=== PATIENT | male | born 1950 | race Caucasian/White ===

== ENCOUNTER 2019-01-22 06:07 | Day surgery (SDC) | payer BC ==
--- NOTE | 2019-01-13 14:33 | HP ---
DATE OF SURGERY: 01/22/2019 REASON FOR ADMISSION: Bilateral inguinal hernias. BRIEF HISTORY: This is a 68-year-old gentleman who has a 4-6 month history of having discomfort in the left groin region. The patient states he has a mass in the left groin as well. The discomfort only started when the mass appeared. He underwent a CT scan of the abdomen and pelvis in December 2018 done at [facility]. The scan demonstrated a small, tiny umbilical hernia and bilateral fat-containing inguinal hernias. The patient states he has had no nausea, vomiting or change in bowel habits. PAST MEDICAL HISTORY: Denies coronary disease, hypertension or diabetes. PAST SURGICAL HISTORY: None. ALLERGIES: None. MEDICATIONS: None. SOCIAL HISTORY: The patient smokes one pack of cigarettes per day. He does not smoke. No history of drug use. PHYSICAL EXAMINATION: The patient was examined in the erect and supine positions. The abdomen is soft, nontender, nondistended. Clinically, he does not have an umbilical hernia. He is still . He has bilateral inguinal hernias noted. The left is much greater than that on the right. The left is not fully reducible in the supine position. Scrotum and testicles are within normal limits. IMPRESSION/PLAN: Chronically incarcerated left inguinal hernia and right inguinal hernia. This is a 68-year-old gentleman with a CT diagnosis of bilateral fat-containing inguinal hernias. What prompted the CT was his clinical presentation of having pain and a mass in the left groin. The patient and I had a long conversation regarding the various surgical approaches for repairing these hernias. We discussed the various types of mesh as well as a primary repair. The patient will be best served with a laparoscopic left and right inguinal hernia repair with mesh. Due to the generosity of the hernia on the left, he may develop a post-operative seroma which may or may not resolve and this was discussed with the patient. He understands and still wants to proceed. The patient will be scheduled for laparoscopic inguinal hernia repair with mesh. The indications, alternatives and complications of the procedure were discussed and questions were answered. We will plan to obtain written consent on the day of surgery. Laura ROMAN [id number] cc: Annabel Hua MD MTDD
[2019-01-13 17:53] VITALS: BMI 23.6
[2019-01-22] MEDS ORDERED: TAMSULOSIN HCL 0.4 MG CAP ONE ×2 (06:33→14:47)
[2019-01-22] MEDS ORDERED: PROPOFOL 20 ML ONE (07:51)
[2019-01-22] MEDS ORDERED: ROCURONIUM BROMIDE 50 MG/5 ML VIAL ONE ×2 (07:51→08:39)
[2019-01-22] MEDS ORDERED: SUCCINYLCHOLINE CHLORIDE 200 MG/10 ML VIAL ONE (07:51)
[2019-01-22] MEDS ORDERED: LIDOCAINE HCL/PF 2% SDV 5ML VIAL ONE (07:51)
[2019-01-22] MEDS ORDERED: MIDAZOLAM HCL 2 MG/2 ML SINGLE DOSE VIAL ONE (07:51)
[2019-01-22] MEDS ORDERED: ALBUTEROL SO4 8 GM HFA INHALER IH ONE (08:05)
[2019-01-22] MEDS ORDERED: ceFAZolin SODIUM 1 GM VIAL ONE (08:19)
[2019-01-22] MEDS ORDERED: ONDANSETRON 4 MG/2 ML VIAL ONE ×2 (08:23→08:54)
[2019-01-22] MEDS ORDERED: DEXAMETHASONE SOD PHOSPHATE 4 MG/1 ML VIAL ONE (08:23)
[2019-01-22] MEDS ORDERED: PHENYLEPHRINE HCL 10 MG/1 ML SINGLE DOSE VIAL ONE (08:24)
[2019-01-22] MEDS ORDERED: GLYCOPYRROLATE 0.2 MG/1 ML VIAL ONE ×2 (08:54→09:11)
[2019-01-22] MEDS ORDERED: NEOSTIGMINE METHYLSULFATE 0.5 MG/ML - 10 ML MDV ONE (08:54)
[2019-01-22] MEDS ORDERED: ONDANSETRON 4 MG/2 ML VIAL IVPUSH PRN (09:32)
[2019-01-22] MEDS ORDERED: oxyCODONE HCL 5 MG TABLET PO PRN (09:32)
[2019-01-22] MEDS ORDERED: LACTATED RINGERS SOLUTION 1,000 ML IV SCH (09:45)
[2019-01-22] MEDS ORDERED: ALBUTEROL SO4 2.5/IPRATROPIUM 0.5 INH SOL 3 ML VIAL.NEB. NEB ONE (09:46)
[2019-01-22] MEDS ORDERED: RACEPINEPHRINE IH SOL 2.25% 11.25 MG/0.5 ML VIAL NEB ONE (09:46)
[2019-01-22] MEDS ORDERED: ACETAMINOPHEN INJECTION 100 ML IVPB ONE (10:35)
[2019-01-22] MEDS ORDERED: ACETAMINOPHEN 1000 MG/100 ML VIAL (NON FORMULARY) IVPB ONE ×2 (10:35→11:23)
--- NOTE | 2019-01-22 11:10 | OP ---
DATE OF OPERATION: 01/22/2019 PREOPERATIVE DIAGNOSIS: Bilateral incarcerated fat-containing inguinal hernias. POSTOPERATIVE DIAGNOSIS: Bilateral incarcerated fat-containing inguinal hernias. PROCEDURE: Bilateral laparoscopic repair of incarcerated inguinal hernias with mesh. SURGEON: Calos Estrada MD PHP PROGRAMMER: Andrea Scott DO ANESTHESIA: Mauricio Go MD (general) ESTIMATED BLOOD LOSS: Minimal. SPECIMEN: None. INDICATION FOR PROCEDURE: This is a 68-year-old gentleman with a 4 to 6-month history of having discomfort in the left groin region. He also notices a mass in the left groin. He underwent a CAT scan that showed bilateral fat-containing incarcerated inguinal hernias. He is now here for operative repair. DESCRIPTION OF PROCEDURE: Patient identified and appropriately positioned on the operating room table. After placement of general anesthesia, the abdomen was prepped and draped in the usual sterile fashion with ChloraPrep. An infraumbilical incision was made, deepened through the subcutaneous tissues. The fascia of the rectus muscle on the right identified, divided sharply, the muscle split. Under direct vision a dissector balloon followed by a structural balloon placed. Also under direct vision a suprapubic 11-mm port placed. The following structures on the right side identified: Pubic tubercle, Mina's ligament, inferior epigastric vessels, spermatic cord and lateral abdominal wall. During this dissection patient had an incarcerated direct inguinal hernia containing fat. This was reduced back into the preperitoneal space. He also had an incarcerated indirect inguinal hernia containing fat that was reduced back into the preperitoneal space with a moderate size cord lipoma. The indirect sac reduced as well. A 5 x 6 piece of Versatex mesh was keyholed, placed through the suprapubic port site. The mesh was wrapped around the cord structures laterally to reconstruct the internal ring. Laterally the mesh was anchored to the anterior abdominal wall, lateral abdominal wall. Medially the mesh was anchored to the anterior abdominal wall, pubic tubercle and Mina's ligament. Upon completion of the right side, similar structures on the left side identified. On the left side he had similar findings except he had attenuation of direct inguinal floor bed and markedly large left indirect inguinal hernia containing fat and a large cord lipoma. Both were reduced back into the preperitoneal space with blunt dissection. The sac was off the cord structures with blunt dissection. Another 5 x 6 piece of Versatex mesh was keyholed, placed through the suprapubic port site. The mesh was wrapped around the cord structures laterally to reconstruct the internal ring. Laterally the mesh was anchored to the anterior abdominal and lateral abdominal wall. Medially the mesh well overlapped in the midline, anchored to the anterior abdominal wall, pubic tubercle and Mina's ligament. The mesh we used was Versatex. The anchoring system was ReliaTack. All anterior abdominal wall and lateral abdominal wall anchors placed under direct counter palpation. The ports were removed. Port sites were hemostatic. The fascia at both port sites reapproximated with interrupted 0 Vicryl suture. All skin closed with 4-0 subcuticular Biosyn followed by Dermabond. At the conclusion of this case, sponge counts were correct. ATTESTATION: Brief op note handwritten on the preprinted form. [facility] queried prior to giving any narcotics. Laura ROMAN [id number] cc: Arpit Hua MD
[2019-01-22 15:01] VITALS: TEMP 97.7
[2019-01-22 17:42] VITALS: BP 112/70; PULSE 63
== END 2019-01-22 17:42 | disposition home or self-care (01) ==
LOC: FASU 06:07
PROVIDERS: ATTEND Surgery
PROC: 0YUA4JZ Supplement Bilateral Inguinal Region with Synthetic Substitute, Percutaneous Endoscopic Approach (ICD-10-PCS; principal; 2019-01-22 08:29)
DX: K40.00 Bilateral inguinal hernia, with obstruction, without gangrene, not specified as recurrent (principal)
CPT/HCPCS: 94760; J0131

== ENCOUNTER 2020-04-14 07:05 | Day surgery (SDC) | payer BC ==
[2020-04-12 11:36] VITALS: BMI 23.3
--- OUTSIDE RECORDS SUMMARY | 2020-04-14 07:08 | XMS ---
:1950 Author Organization [facility] Support Name Relationship Address Phone RE, RETIRED Unavailable Unavailable Unavailable RE Unavailable Unavailable Unavailable MAUREEN RAMIREZ [address] [facility] [place] [address] Re-disclosure Warning The records that you are about to access may contain information from federally- assisted alcohol or drug abuse programs. If such information is present, then the following federally mandated warning applies: This information has been disclosed to you from records protected by federal confidentiality rules (42 CFR part 2). The federal rules prohibit you from making any further disclosure of this information unless further disclosure is expressly permitted by the written consent of the person to whom it pertains or as otherwise permitted by 42 CFR part 2. A general authorization for the release of medical or other information is NOT sufficient for this purpose. The Federal rules restrict any use of the information to criminally investigate or prosecute any alcohol or drug abuse patient.The records that you are about to access may contain highly sensitive health information, the redisclosure of which is protected by Article 27-F of the [facility] Public Health law. If you continue you may haveaccess to information: Regarding HIV / AIDS; Provided by facilities licensed or operated by the [facility] Office of Mental Health; or Provided by the [facility] Office for People With Developmental Disabilities. If such information is present, then the following [facility] mandated warning applies: This information has been disclosed to you from confidential records which are protected by state law. State law prohibits you from making any further disclosure of this information without the specific written consent of the person to whom it pertains, or as otherwise permitted by law. Any unauthorized further disclosure in violation of state law may result in a fine or care home sentence or both. A general authorization for the release of medical or other information is NOT sufficient authorization for further disclosure. Insurance Providers Payer name Policy type Policy ID Covered Covered alliance party's Policy P hansel / Coverage alliance party ID relationship to [place] Inf ormation type [place] BLUE CROSS [id number] SP [id number] SENIOR PLAN 2 BLUE CROSS [id number] SP [id number] SENIOR PLAN 2 Results ID Date Data Source [id number] 04/10/2020 09:10:00 AM EDT [facility] Name Value Range Interpretation Description Data Sup porting Code Source(s) Document(s ) SARS [facility] coronavirus 2 RNA This lab was ordered by [facility] and reported by [facility]. ID Date Data Source [id number] 03/30/2020 07:45:00 PM EDT [facility] Name Value Range Interpretation Code Description Data Catalina rce(s) Supporting Document(s ) [facility] SARS-CoV-2 TMA PCR This lab was ordered by [facility] CALL and reported by [facility]. Procedure
[2020-04-14] MEDS ORDERED: PROPOFOL 20 ML ONE ×3 (07:55)
[2020-04-14] MEDS ORDERED: LIDOCAINE HCL/PF 2% SDV 5ML VIAL ONE (07:55)
[2020-04-14 09:39] VITALS: TEMP 97.8
[2020-04-14 09:41] VITALS: BP 101/55; PULSE 65
--- NOTE | 2020-04-15 15:39 | PATH ---
Surgical Pathology Report Patient Name: FREDI RAMIREZ [facility]. Rec. #: [id number] /Age/Gender: 1950 (Age: 69) / M Account: [id number] Location: [facility] Taken: 04/14/2020 Received: 04/14/2020 Reported: 04/15/2020 Physicians: Bucky Brandt M.D. Specimen(s) Received A: POLYP HEPATIC FLEXURE B: POLYP DISTAL RIGHT COLON C: POLYPECTOMY PROXIMAL TRANSVERSE COLON D: POLYPECTOMY SIGMOID COLON Clinical History History of polyps Postoperative diagnosis: Colon polyps Final Diagnosis A. HEPATIC FLEXURE, POLYP, BIOPSY: SCANT (< 1 MM) FRAGMENT OF FIBROADIPOSE TISSUE. NO COLONIC MUCOSA IS IDENTIFIED. B. DISTAL RIGHT COLON, POLYP, BIOPSY: HYPERPLASTIC POLYP. C. PROXIMAL TRANSVERSE, POLYP, POLYPECTOMY: TUBULAR ADENOMA. D. SIGMOID COLON, POLYP, POLYPECTOMY: SESSILE SERRATED POLYP. Comment: Case discussed with Dr. Brandt on 04/15/20. Electronically Signed Soniya Hancock M.D. Gross Description A. Received in formalin, labeled "biopsy polyp hepatic flexure" is a brown, irregular portion of soft tissue measuring less than 0.1 cm. in greatest dimension. The specimen is submitted in toto in one cassette. B. Received in formalin, labeled "polyp distal right colon biopsy" is a maldonado, irregular portion of soft tissue measuring 0.2 cm. in greatest dimension. The specimen is submitted in toto in one cassette. C. Received in formalin, labeled "polypectomy proximal transverse" is a maldonado, polypoid portion of soft tissue measuring 0.7 cm. in greatest dimension. The specimen is submitted in toto in one cassette. D. Received in formalin, labeled "polypectomy sigmoid colon" is a maldonado, irregular portion of soft tissue measuring 0.3 cm. in greatest dimension. The specimen is submitted in toto in one cassette. 04/14/2020 saudi/04/14/2020
== END 2020-04-14 09:43 | disposition home or self-care (01) ==
LOC: FASU-ENDO 07:05
PROVIDERS: ATTEND Internal Medicine Gastroenterology
PROC: 0DBL8ZX Excision of Transverse Colon, Via Natural or Artificial Opening Endoscopic, Diagnostic (ICD-10-PCS; 2020-04-14)
PROC: 0DBK8ZX Excision of Ascending Colon, Via Natural or Artificial Opening Endoscopic, Diagnostic (ICD-10-PCS; 2020-04-14)
PROC: 0DBN8ZX Excision of Sigmoid Colon, Via Natural or Artificial Opening Endoscopic, Diagnostic (ICD-10-PCS; principal; 2020-04-14 08:26)
DX: Z86.010 Personal history of colon polyps (principal); D12.2 Benign neoplasm of ascending colon; D12.3 Benign neoplasm of transverse colon; D12.5 Benign neoplasm of sigmoid colon
CPT/HCPCS: 88305-TC

== ENCOUNTER 2025-05-05 06:00 | Day surgery (SDC) | payer BC ==
[2025-05-01 12:11] VITALS: BMI 22.6
[2025-05-05] MEDS ORDERED: ERYTHROMYCIN 0.5% OPHTHALMIC OINTMENT 3.5 GM TUBE ONE (07:18)
[2025-05-05] MEDS ORDERED: TETRACAINE 0.5% OPHTH SOLN 2 ML BOTTLE ONE (07:18)
[2025-05-05] MEDS ORDERED: POVIDONE-IODINE 5% OPHTHALMIC PREP 30 ML SOLUTION ONE (07:18)
[2025-05-05] MEDS ORDERED: BUPIVACAINE HCL/PF 0.5% (5MG/ML) 10 ML VIAL ONE (07:19)
[2025-05-05] MEDS ORDERED: LIDOCAINE 1%/EPI 1:100000 (20 ML MULTI DOSE VIAL) ONE (07:19)
[2025-05-05] MEDS ORDERED: PROPOFOL 20 ML ONE ×2 (07:46→08:44)
[2025-05-05] MEDS ORDERED: MIDAZOLAM HCL 2 MG/2 ML SINGLE DOSE VIAL ONE (07:50)
[2025-05-05] MEDS ORDERED: ONDANSETRON 4 MG/2 ML VIAL IVPUSH PRN (08:56)
[2025-05-05] MEDS ORDERED: LACTATED RINGERS SOLUTION 1,000 ML IV SCH (09:00)
[2025-05-05] MEDS ORDERED: ACETAMINOPHEN INJECTION 100 ML ONE (09:16)
[2025-05-05] MEDS: ACETAMINOPHEN 1000 MG/100 ML BAG IVPB ONE (09:20)
[2025-05-05 10:21] VITALS: RESP 18; TEMP 97.3
[2025-05-05 10:54] VITALS: BP 124/75; PULSE 73
[2025-05-05] MEDS ORDERED: ACETAMINOPHEN 1000 MG/100 ML BAG IVPB ONE (11:23)
== END 2025-05-05 10:57 | disposition home or self-care (01) ==
LOC: FASU 06:00
PROVIDERS: ATTEND Ophthalmology
PROC: 08SQXZZ Reposition Right Lower Eyelid, External Approach (ICD-10-PCS; principal; 2025-05-05 08:03)
DX: H02.132 Senile ectropion of right lower eyelid (principal); H16.8 Other keratitis